=== PATIENT | female | born 1955 | race Caucasian/White ===

== ENCOUNTER 2017-08-31 08:35 | Emergency (ER) | payer BC ==
[2017-08-31] MEDS ORDERED: Bupivacaine 0.5% 30 ML SDV INJECT ONE (09:15)
[2017-08-31] MEDS ORDERED: Triamcinolone Acetonide 40 MG/ML 1 ML MDV INJECT ONE (09:15)
[2017-08-31 09:23] VITALS: BP 118/59
--- NOTE | 2017-08-31 09:44 | EDM.PDOC ---
ED HPI GENERAL MEDICAL PROBLEM - General Chief Complaint: Lower Extremity Injury/Pain Stated Complaint: RIGHT HIP AND LEG PAIN Time Seen by Provider: 08/31/17 09:10 Source of Information: Reports: Patient History Limitations: Reports: No Limitations - History of Present Illness INITIAL COMMENTS - FREE TEXT/NARRATIVE: 62-year-old female with significant right hip pain, his x-ray scheduled for hip surgery in a couple of weeks but now has developed lateral pain and extension of pain into the buttock and down the lateral right thigh. She is having difficulty standing from a sitting position, if she is still she has no significant pain. No fevers or chills, no bruising, no specific trauma Onset: Gradual Duration: Week(s): (Symptoms have been chronic but the lateral pain) Right Leg Pain Score (Numeric/FACES): 3 - Related Data Allergies Allergy/AdvReac Type Severity Reaction Status Date / Time adhesive Allergy Cannot Verified 06/19/14 07:12 Remember Home Meds: Home Meds FLUoxetine HCl [Fluoxetine HCl] 20 mg PO DAILY 02/20/14 [History] Cholecalciferol (Vitamin D3) [Vitamin D3] 5,000 units PO DAILY 06/15/14 [History ] Clobetasol [Clobetasol 0.05%] 1 applic TOP BID 06/15/14 [History] Emu Oil 750 mg PO 5XDAY 06/15/14 [History] Hyaluronate Sodium [Hyaluronic Acid] 100 mg TOP BID 06/15/14 [History] [place]-3 Fatty Acids [Fish Oil] 3,000 mg PO BID 06/15/14 [History] Potassium Gluconate 595 mg PO DAILY 06/15/14 [History] Ubidecarenone [Coenzyme Q10] 100 mg PO DAILY 06/15/14 [History] Hydrochlorothiazide 12.5 mg PO DAILY 08/31/17 [History] Past Medical History - Past Health History Medical/Surgical History: Denies Medical/Surgical History - Infectious Disease History Infectious Disease History: Reports: Chicken Pox Social & Family History - Tobacco Use Smoking Status *Q: Never Smoker - Caffeine Use Caffeine Use: Reports: Coffee - Recreational Drug Use Recreational Drug Use: No Review of Systems - Review of Systems Review Of Systems: See Below (Symptoms have been chronic but the lateral pain is in the last several days) Constitutional: Denies: Fever Respiratory: Denies: Shortness of Breath GI/Abdominal: Denies: Abdominal Pain Musculoskeletal: Reports: Other (Significant right buttock and hip pain) ED EXAM, GENERAL - Physical Exam Exam: See Below Exam Limited By: No Limitations General Appearance: Alert, No Apparent Distress, Other (When lying supine the patient is fairly comfortable) Respiratory/Chest: No Respiratory Distress Extremities: Other (Exam of the right leg reveals intense pain with palpation of the greater trochanteric area, increased pain with flexion of the hip or abduction against resistance) Course - Vital Signs Last Recorded V/S: Last Vital Signs Temp 97.4 F 08/31/17 08:56 Pulse 81 08/31/17 08:56 Resp 18 08/31/17 08:56 BP 118/59 L 08/31/17 09:23 Pulse Ox 97 08/31/17 08:56 - Orders/Labs/Meds Meds: Medications Discontinued Medications Generic Name Dose Route Start Last Admin Trade Name Adilson PRN Reason Stop Dose Admin Bupivacaine HCl 10 ml 08/31/17 09:15 08/31/17 09:55 Marcaine 0.5% INJECT 08/31/17 09:16 10 ml ONETIME ONE Administration Triamcinolone Acetonide 40 mg 08/31/17 09:15 08/31/17 09:55 Kenalog-40 INJECT 08/31/17 09:16 40 mg ONETIME ONE Administration - Re-Assessments/Exams Free Text/Narrative Re-Assessment/Exam: 08/31/17 09:42 Discussed trochanteric bursitis with the patient and I felt it was worthwhile to try to decrease inflammation of the lateral soft tissue of the right hip. 8 mL of 0.5% bupivacaine was mixed with 40 mg of Kenalog, under sterile conditions was infiltrated into the greater trochanteric area in a fan distribution. This was massaged and the area. She had marked less pain laterally and was able to get up from a sitting position much easier but with certain range of motion of the hip she still had intense pain into the groin and down into the knee. I suspect this is residual pain from her arthritic hip. She'll be discharged with 10 hydrocodone for extra pain relief and will recheck with Dr. Hernandez on as scheduled. She can return sooner if worsening. Departure - Departure Time of Disposition: 10:01 Disposition: Home, Self-Care 01 Condition: Fair Clinical Impression: Trochanteric bursitis of right hip - Discharge Information Instructions: Trochanteric Bursitis Referrals: Joshua Hernandez MD [Primary Care Provider] - Forms: ED Department Discharge Care Plan Goals: Continue your current medications, add stronger pain medications if needed. Activity as tolerated, and recheck on as scheduled. He can return to the emergency room if worsening despite treatment.
== END 2017-08-31 09:55 | disposition home or self-care (01) ==
LOC: JP.ED 08:35
DX: M70.61 Trochanteric bursitis, right hip (principal); Z79.899 Other long term (current) drug therapy; Z91.09 Other allergy status, other than to drugs and biological substances
CPT/HCPCS: 20610; 99283; J3301

== ENCOUNTER 2018-07-04 07:21 | Emergency (ER) | payer BC ==
[2018-07-04 07:44] VITALS: BP 131/83
--- NOTE | 2018-07-04 07:48 | EDM.PDOC ---
ED HPI GENERAL MEDICAL PROBLEM - General Chief Complaint: Gastrointestinal Problem Stated Complaint: ABD PAIN THAT SHOOTS TO RIGHT SHOULDER Time Seen by Provider: 07/04/18 07:47 Source of Information: Reports: Patient, RN Notes Reviewed - History of Present Illness INITIAL COMMENTS - FREE TEXT/NARRATIVE: pt arroved with pain in the upper abdoman. When she got up yesterday am she had pain in the upper abdoman. and it hurt to take a deep breath. She did not vomit. She did have Ham the nite before the onset of the pain. Onset: Other Duration: Hour(s):, Intermittent Location: Reports: Abdomen Associated Symptoms: Reports: Loss of Appetite epigastric Pain Score (Numeric/FACES): 0 - Related Data Allergies Allergy/AdvReac Type Severity Reaction Status Date / Time adhesive Allergy Cannot Verified 07/04/18 07:39 Remember Home Meds: Home Meds FLUoxetine HCl [Fluoxetine HCl] 20 mg PO DAILY 02/20/14 [History] Cholecalciferol (Vitamin D3) [Vitamin D3] 5,000 units PO DAILY 06/15/14 [History ] [place]-3 Fatty Acids [Fish Oil] 3,000 mg PO BID 06/15/14 [History] Ubidecarenone [Coenzyme Q10] 100 mg PO DAILY 06/15/14 [History] hydroCHLOROthiazide [Hydrochlorothiazide] 12.5 mg PO DAILY 08/31/17 [History] Potassium 99 mg PO DAILY 03/01/18 [History] Magnesium Oxide [Magnesium] 400 mg PO DAILY 07/04/18 [History] Past Medical History - Past Health History Medical/Surgical History: Denies Medical/Surgical History HEENT History: Reports: Impaired Vision Cardiovascular History: Reports: Hypertension [employer] History: Reports: Oncologic (Cancer) History: Reports: Malignant Melanoma - Infectious Disease History Infectious Disease History: Reports: Chicken Pox - Past Surgical History Musculoskeletal Surgical History: Reports: Hip Replacement Social & Family History - Tobacco Use Smoking Status *Q: Never Smoker - Caffeine Use Caffeine Use: Reports: Coffee - Recreational Drug Use Recreational Drug Use: No ED ROS GENERAL - Review of Systems Review Of Systems: See Below Constitutional: Reports: No Symptoms HEENT: Reports: No Symptoms Respiratory: Reports: No Symptoms Cardiovascular: Reports: No Symptoms Endocrine: Reports: No Symptoms GI/Abdominal: Reports: Other (Pt is having pain in the upper abdoman and going to the rt shoulder. Pain did get worse when she took a deep breath. ) : Reports: No Symptoms Musculoskeletal: Reports: No Symptoms Skin: Reports: No Symptoms ED EXAM, GI/ABD - Physical Exam Exam: See Below Text/Narrative:: Pt arrived with pain in the upper abdoman. She noted that she had pain with deep breathing. She is not uncomfortable with deep breathing at this point. She does not have a fever. She is not sick to her stomach. Exam Limited By: No Limitations General Appearance: Alert, Mild Distress Ears: Normal TMs Nose: Normal Inspection Throat/Mouth: Normal Inspection Head: Atraumatic Neck: Normal Inspection Respiratory/Chest: No Respiratory Distress Cardiovascular: Regular Rate, Rhythm GI/Abdominal Exam: Other (mild upper abdomanal tenderness in the rt upper quadrant and in the epigastric area. ) (Female) Exam: Deferred Rectal (Female) Exam: Deferred, Other (pt did have a normal bm this am. ) Back Exam: Normal Inspection Extremities: Normal Inspection Neurological: Alert, Oriented, Normal Cognition Psychiatric: Normal Affect Course - Vital Signs Last Recorded V/S: Last Vital Signs Temp 36.7 C 07/04/18 07:43 Pulse 75 07/04/18 07:43 Resp 18 07/04/18 07:43 BP 131/83 07/04/18 07:43 Pulse Ox 98 07/04/18 07:43 - Orders/Labs/Meds Orders: Active Orders 24 hr Category Date Time Status EKG Documentation Completion [RC] ASDIRECTED Care 07/04/18 08:45 Active EKG 12 Lead [EK] Routine Ther 07/04/18 08:45 Ordered Labs: Laboratory Tests 07/04/18 07/04/18 07/04/18 Range/Units 07:54 08:01 08:01 WBC 5.5 (4.5-11.0) K/uL RBC 4.56 (3.30-5.50) M/uL Hgb 13.6 (12.0-15.0) g/dL Hct 40.9 (36.0-48.0) % MCV 90 (80-98) fL MCH 30 (27-31) pg MCHC 33 (32-36) % Plt Count 286 (150-400) K/uL Neut % (Auto) 61 (36-66) % Lymph % (Auto) 27 (24-44) % [place] % (Auto) 9 H (2-6) % Eos % (Auto) 3 (2-4) % Baso % (Auto) 1 (0-1) % Sodium 138 L (140-148) mmol/L Potassium 3.4 L (3.6-5.2) mmol/L Chloride 103 (100-108) mmol/L Carbon Dioxide 27 (21-32) mmol/L Anion Gap 11.4 (5.0-14.0) mmol/L BUN 17 D (7-18) mg/dL Creatinine 0.7 (0.6-1.0) mg/dL Est Cr Clr Drug Dosing 68.93 mL/min Estimated GFR (MDRD) > 60 (>60) Glucose 92 (74-106) mg/dL Calcium 8.9 (8.5-10.1) mg/dL Total Bilirubin 0.6 (0.2-1.0) mg/dL AST 16 (15-37) U/L ALT 20 (12-78) U/L Alkaline Phosphatase 81 (46-116) U/L Troponin I (0.000-0.056) ng/mL C-Reactive Protein 0.27 (0.0-0.3) mg/dL Total Protein 7.3 (6.4-8.2) g/dL Albumin 3.5 (3.4-5.0) g/dL Globulin 3.8 H (2.3-3.5) g/dL Albumin/Globulin Ratio 0.9 L (1.2-2.2) Lipase 131 (73-393) U/L Urine Color Yellow Urine Appearance Slightly cloudy Urine pH 8.0 (4.5-8.0) Ur Specific [place] 1.005 L (1.008-1.030) Urine Protein Negative (NEGATIVE) mg/dL Urine Glucose (UA) Normal (NEGATIVE) mg/dL Urine Ketones Negative (NEGATIVE) mg/dL Urine Occult Blood Large (NEGATIVE) Urine Nitrite Negative (NEGATIVE) Urine Bilirubin Negative (NEGATIVE) Urine Urobilinogen Normal (NORMAL) mg/dL Ur Leukocyte Esterase Negative (NEGATIVE) Urine RBC 10-20 H (0-5) Urine WBC 0-5 (0-5) Ur Epithelial Cells Few Amorphous Sediment Few Urine Bacteria Not seen Urine Mucus Few 07/04/18 Range/Units 09:18 WBC (4.5-11.0) K/uL RBC (3.30-5.50) M/uL Hgb (12.0-15.0) g/dL Hct (36.0-48.0) % MCV (80-98) fL MCH (27-31) pg MCHC (32-36) % Plt Count (150-400) K/uL Neut % (Auto) (36-66) % Lymph % (Auto) (24-44) % [place] % (Auto) (2-6) % Eos % (Auto) (2-4) % Baso % (Auto) (0-1) % Sodium (140-148) mmol/L Potassium (3.6-5.2) mmol/L Chloride (100-108) mmol/L Carbon Dioxide (21-32) mmol/L Anion Gap (5.0-14.0) mmol/L BUN (7-18) mg/dL Creatinine (0.6-1.0) mg/dL Est Cr Clr Drug Dosing mL/min Estimated GFR (MDRD) (>60) Glucose (74-106) mg/dL Calcium (8.5-10.1) mg/dL Total Bilirubin (0.2-1.0) mg/dL AST (15-37) U/L ALT (12-78) U/L Alkaline Phosphatase (46-116) U/L Troponin I < 0.017 (0.000-0.056) ng/mL C-Reactive Protein (0.0-0.3) mg/dL Total Protein (6.4-8.2) g/dL Albumin (3.4-5.0) g/dL Globulin (2.3-3.5) g/dL Albumin/Globulin Ratio (1.2-2.2) Lipase (73-393) U/L Urine Color Urine Appearance Urine pH (4.5-8.0) Ur Specific [place] (1.008-1.030) Urine Protein (NEGATIVE) mg/dL Urine Glucose (UA) (NEGATIVE) mg/dL Urine Ketones (NEGATIVE) mg/dL Urine Occult Blood (NEGATIVE) Urine Nitrite (NEGATIVE) Urine Bilirubin (NEGATIVE) Urine Urobilinogen (NORMAL) mg/dL Ur Leukocyte Esterase (NEGATIVE) Urine RBC (0-5) Urine WBC (0-5) Ur Epithelial Cells Amorphous Sediment Urine Bacteria Urine Mucus - Re-Assessments/Exams Free Text/Narrative Re-Assessment/Exam: 07/04/18 09:48 pt had a ekg with nothing acute, Her trop was normal. Her chest xray was clear. She was tender over the rt upper abdoman and a Us was done which did not show acute findings. Her lab work looked normal. Departure - Departure Time of Disposition: 09:49 Disposition: Home, Self-Care 01 Condition: Fair Clinical Impression: Abdominal pain - Discharge Information Referrals: Joshua Hernandez MD [Primary Care Provider] - Forms: ED Department Discharge Care Plan Goals: eat lite the next 24 hours, over the counter pepcid twice daily for the next few days, rtc if pain should get worse. - My Orders Last 24 Hours: My Active Orders 07/04/18 08:45 EKG Documentation Completion [RC] ASDIRECTED EKG 12 Lead [EK] Routine - Assessment/Plan Last 24 Hours: My Active Orders 07/04/18 08:45 EKG Documentation Completion [RC] ASDIRECTED EKG 12 Lead [EK] Routine
--- NOTE | 2018-07-04 09:35 | CRLUS ---
HISTORY: Right upper quadrant abdominal pain. COMPARISON: None. FINDINGS: The liver demonstrates normal echogenicity. Visualized pancreas is within normal. No gallstones, gallbladder wall thickening or pericholecystic fluid. Sonographic Villagomez`s sign negative. The common duct is within normal at 0.4 cm. The right kidney measures 10.0 x 5.2 x 5.4 cm. No hydronephrosis. The IVC is patent. IMPRESSION: Negative right upper quadrant ultrasound. Dictated by Yaneli Toribio MD @ Jul 04 2018 9:31AM Signed by Dr. Yaneli Toribio @ Jul 04 2018 9:34AM
--- NOTE | 2018-07-04 09:46 | CRLCR ---
INDICATION: Pain upper abdomen TECHNIQUE: Two view chest. FINDINGS: The lungs are clear. The heart, mediastinum and pulmonary vessels are of normal size. There is no evidence of pleural disease. IMPRESSION: Negative chest. Dictated by Alaina Ramirez MD @ Jul 04 2018 9:43AM Signed by Dr. Alaina Ramirez @ Jul 04 2018 9:43AM
== END 2018-07-04 09:57 | disposition home or self-care (01) ==
LOC: JP.ED 07:21
DX: R10.13 Epigastric pain (principal); R10.11 Right upper quadrant pain; I10 Essential (primary) hypertension; Z91.09 Other allergy status, other than to drugs and biological substances; Z79.899 Other long term (current) drug therapy
CPT/HCPCS: 36415; 71046; 76705; 80053; 81001; 83690; 84484; 85025; 86140; 93005; 99284-25